=== PATIENT | male | born 2000 | race Caucasian/White ===

== ENCOUNTER 2021-08-08 12:07 | Emergency (ER) | payer SELFPAY ==
[~2021-08-08] VITALS: Ht 172.7 cm; Wt 85.7 kg
[2021-08-08 12:15] VITALS: BP 129/78
--- NOTE | 2021-08-08 12:20 | NUR ---
Patient ambulated to bed 8.
--- NOTE | 2021-08-08 12:26 | NUR ---
Dr. Garcia at bedside evaluting patient.
[2021-08-08] MEDS ORDERED: ONDANSETRON 4 MG ODT PO ONE (12:30)
--- NOTE | 2021-08-08 12:38 | NUR ---
21 Y/O MALE C/O HEAD PAIN S/P FALLING OFF BUNK BED TODAY AND FALLING 2 METERS. DENIES LOC. DENIES CHANGE OF VISION. PT REPORTS HE FELL ATY 0830 THIS MORNING AND AT 1030, HEADACHE STATED. PT REPORTS "IT FEELS LIKE I HAVE A CONCUSSION" +NAUSEA/VOMITING. +SENSITIVITY TO LIGHT. DENIES ABDOMINAL PAIN. PT RATES HEADACHE 8/10 THAT HE DESCRIBES THROBBING. SKIN INTACT ON HEAD. PT A/O X4, STEADY GAIT. EVEN AND UNLABORED RESPIRATIONS NOTED. PMH:DEPRESSION, ADHD NKDA
--- NOTE | 2021-08-08 12:39 | NUR ---
pt taken to ct via w/c
--- NOTE | 2021-08-08 12:45 | NUR ---
PT BACK FROM CT
[2021-08-08] MEDS ORDERED: KETOROLAC 60 MG/2 ML VIAL IM ONE (13:00)
[2021-08-08] MEDS ORDERED: IBUP-2213 PO (13:16)
[2021-08-08] MEDS ORDERED: ONDA8TAB87 PO (13:16)
[2021-08-08 13:33] VITALS: BP 122/79
--- NOTE | 2021-08-08 13:35 | NUR ---
Patient discharged with v/s stable. Written and verbal after care instructions given and explained. Patient alert, oriented and verbalized understanding of instructions. Ambulatory with steady gait. All questions addressed prior to discharge. ID band removed. Patient advised to follow up with PMD. Rx of IBUPROFEN, ZOFRAN given. Patient educated on indication of medication including possible reaction and side effects. Opportunity to ask questions provided and answered.
== END 2021-08-08 13:35 | disposition home or self-care (01) ==
LOC: MED 12:07
DX: S09.90XA Unspecified injury of head, initial encounter (principal); R11.2 Nausea with vomiting, unspecified; W06.XXXA Fall from bed, initial encounter; Y93.89 Activity, other specified; Y92.89 Other specified places as the place of occurrence of the external cause; Y99.8 Other external cause status
CPT/HCPCS: 70450; 96372; 99284; J1885; Q0162